=== PATIENT | female | born 1975 | race Native Hawaiian/Other Pacific Islander ===

== ENCOUNTER 2022-03-20 09:26 | Outpatient (CLI) | payer OTHER | END 2022-03-20 18:57 | disposition home or self-care (01) | LOC: RAD 09:26 | PROVIDERS: ATTEND Nurse Practitioner Family | DX: M62.830 Muscle spasm of back (principal) ==

== ENCOUNTER 2022-06-28 09:53 | Outpatient (CLI) | payer OTHER | END 2022-06-28 22:18 | disposition home or self-care (01) | LOC: US 09:53 | PROVIDERS: ATTEND Nurse Practitioner Family | DX: R10.9 Unspecified abdominal pain (principal) ==

== ENCOUNTER 2022-09-27 14:01 | Outpatient (CLI) | payer OTHER | END 2022-09-27 19:22 | disposition home or self-care (01) | LOC: RAD 14:01 | PROVIDERS: ATTEND Physician Assistant | DX: M54.59 Other low back pain (principal) ==